=== PATIENT | male | born 1960 | race Caucasian/White ===

== ENCOUNTER 2017-06-27 17:51 | Emergency (ER) | payer SELFPAY ==
[~2017-06-27] VITALS: Ht 177.8 cm; Wt 75.0 kg
[2017-06-27 18:56] LABS: GLUCOSE,POINT OF CARE 85 MG/DL (70-110)
[2017-06-27 19:44] LABS: BASOPHILS % (AUTO) 1.3 % (0.0-2.0); EOSINOPHILS % (AUTO) 3.4 % (1.0-6.0); HEMATOCRIT 46.7 % (41-53); HEMOGLOBIN 15.4 g/dL (13.5-17.5); LYMPHOCYTES # (AUTO) 4.8 K/uL (1.0-4.8); LYMPHOCYTES % (AUTO) 58.6 % (22.0-44.0); MEAN CORPUSCULAR HEMOGLOBIN 31.9 pg (26.0-34.0); MEAN CORPUSCULAR HGB CONC 33.1 G/dL (31.0-37.0); MEAN CORPUSCULAR VOLUME 96 fL (80-100); MONOCYTES # (AUTO) 0.5 K/uL (0.1-1.0); MONOCYTES % (AUTO) 6.2 % (2.0-9.0); NEUTROPHILS # (AUTO) 2.5 K/uL (1.8-7.7); NEUTROPHILS % (AUTO) 30.5 % (40.0-70.0); PLATELET COUNT (AUTO) 109 K/uL (150-450); RED BLOOD CELL COUNT(AUTO) 4.84 MIL/uL (4.50-5.90); RED CELL DISTRIBUTION WIDTH 14.6 % (11.5-14.5); WHITE BLOOD COUNT (AUTO) 8.1 K/uL (4.5-11.0)
[2017-06-27 19:54] LABS: ANION GAP 7 mmol/L (8-16); CARBON DIOXIDE 30 mmol/L (22-29); CHLORIDE 105 mmol/L (98-107); CREATININE 1.02 mg/dL (0.60-1.30); GLOMERULAR FILTR. RATE CALC > 60 mL/min (>60); POTASSIUM 4.5 mmol/L (3.5-5.1); SODIUM SERUM 142 mmol/L (136-145); UREA NITROGEN, BLOOD 12 mg/dL (7-18)
[2017-06-27 20:00] LABS: ALANINE AMINOTRANSFERASE 108 U/L (12-78); ALBUMIN 3.7 g/dL (3.4-5.0); ASPARTATE AMINOTRANSFERASE 100 U/L (15-37); BILIRUBIN,TOTAL 0.4 mg/dL (0.1-1.0); TOTAL PROTEIN, SERUM 7.6 g/dL (6.4-8.2)
[2017-06-27 20:35] LABS: RBC MORPHOLOGY COMMENT NORMAL RBC MORPH
[2017-06-28 03:01] VITALS: BP 126/67
== END 2017-06-28 03:01 | disposition home or self-care (01) ==
LOC: EMS 17:53
DX: F10.129 Alcohol abuse with intoxication, unspecified (principal); R94.5 Abnormal results of liver function studies; D69.6 Thrombocytopenia, unspecified; Y90.8 Blood alcohol level of 240 mg/100 ml or more
CPT/HCPCS: 36415; 70450; 72125; 80053; 80307; 82962; 85025; 99285; G0480

== ENCOUNTER 2020-09-20 20:01 | Inpatient (IN) | payer OTHER, SELFPAY ==
[~2020-09-20] VITALS: Ht 172.7 cm; Wt 69.3 kg
[2020-09-20] MEDS ORDERED: 0.9% SODIUM CHLORIDE 10 ML SYRINGE IVP PRN (21:45)
[2020-09-20] MEDS ORDERED: ACETAMINOPHEN 325 MG TABLET PO PRN ×2 (21:45→22:00)
[2020-09-20] MEDS ORDERED: ONDANSETRON HCL 4 MG/2 ML VIAL IVP PRN ×2 (21:45→22:00)
[2020-09-20] MEDS ORDERED: ZOLPIDEM TARTRATE 5 MG TABLET PO PRN (22:00)
[2020-09-20] MEDS ORDERED: MORPHINE SULFATE 2 MG/ML SYRINGE IVP PRN (22:00)
[2020-09-20] MEDS ORDERED: HYDROCODONE/ACETAMINOPHEN 5-325 MG TABLET PO PRN (22:00)
[2020-09-20] MEDS ORDERED: BISACODYL 10 MG RECTAL RECTAL SUPPOSITORY PR PRN (22:00)
[2020-09-20] MEDS ORDERED: MAGNESIUM HYDROXIDE SUSPENSION 30 ML UDCUP PO PRN (22:00)
[2020-09-20 22:01] LABS: BASOPHILS % (AUTO) 1.3 % (0.0-2.0); EOSINOPHILS % (AUTO) 1.7 % (1.0-6.0); HEMATOCRIT 44.4 % (41-53); HEMOGLOBIN 14.6 g/dL (13.5-17.5); LYMPHOCYTES # (AUTO) 2.2 K/uL (1.0-4.8); MEAN CORPUSCULAR HEMOGLOBIN 29.1 pg (26.0-34.0); MEAN CORPUSCULAR HGB CONC 32.9 G/dL (31.0-37.0); MEAN CORPUSCULAR VOLUME 88 fL (80-100); MONOCYTES # (AUTO) 0.6 K/uL (0.1-1.0); MONOCYTES % (AUTO) 6.7 % (2.0-9.0); NEUTROPHILS # (AUTO) 5.4 K/uL (1.8-7.7); NEUTROPHILS % (AUTO) 64.3 % (40.0-70.0); RED BLOOD CELL COUNT(AUTO) 5.03 MIL/uL (4.50-5.90)
[2020-09-20 22:09] LABS: CALCIUM, TOTAL 9.5 mg/dL (8.8-10.5); CREATININE 1.28 mg/dL (0.60-1.30); POTASSIUM 3.7 mmol/L (3.5-5.1)
[2020-09-20 22:14] LABS: ALBUMIN 3.5 g/dL (3.4-5.0); BILIRUBIN,TOTAL 0.4 mg/dL (0.1-1.0); TOTAL PROTEIN, SERUM 7.6 g/dL (6.4-8.2)
[2020-09-20 22:32] LABS: PLATELET COUNT (AUTO) 73 K/uL (150-450)
[2020-09-20 23:08] VITALS: BP 147/91
[2020-09-20] MEDS: HEPARIN SODIUM,PORCINE 5,000 UNITS/ML VIAL SQ SCH (23:24)
[2020-09-21 04:57] VITALS: BP 156/83
[2020-09-21] MEDS ORDERED: INFLUENZA VIRUS VACCINE QVS 2020-21 (6MO+)/PF 60 MCG/0.5 ML SYRINGE IM ONE (07:00)
[2020-09-21] MEDS ORDERED: GABA-1181 PO (07:05)
[2020-09-21] MEDS ORDERED: IBUP-1506 PO (07:05)
[2020-09-21] MEDS ORDERED: ACET-66 PO (07:05)
[2020-09-21] MEDS ORDERED: TAMS-13 PO (07:05)
[2020-09-21] MEDS ORDERED: CHOL125C2 PO (07:05)
[2020-09-21 07:21] LABS: EOSINOPHILS % (AUTO) 2.1 % (1.0-6.0); HEMATOCRIT 43.1 % (41-53); HEMOGLOBIN 14.7 g/dL (13.5-17.5); LYMPHOCYTES # (AUTO) 1.7 K/uL (1.0-4.8); LYMPHOCYTES % (AUTO) 21.2 % (22.0-44.0); MEAN CORPUSCULAR HEMOGLOBIN 29.9 pg (26.0-34.0); MEAN CORPUSCULAR HGB CONC 34.2 G/dL (31.0-37.0); MEAN CORPUSCULAR VOLUME 87 fL (80-100); MONOCYTES # (AUTO) 0.6 K/uL (0.1-1.0); MONOCYTES % (AUTO) 7.7 % (2.0-9.0); NEUTROPHILS # (AUTO) 5.5 K/uL (1.8-7.7); PLATELET COUNT (AUTO) 72 K/uL (150-450); RED BLOOD CELL COUNT(AUTO) 4.93 MIL/uL (4.50-5.90); RED CELL DISTRIBUTION WIDTH 14.9 % (11.5-14.5)
[2020-09-21 07:36] LABS: ALANINE AMINOTRANSFERASE 37 U/L (12-78); ALBUMIN 3.1 g/dL (3.4-5.0); ALKALINE PHOSPHATASE 98 U/L (46-116); ANION GAP 6 mmol/L (8-16); ASPARTATE AMINOTRANSFERASE 37 U/L (15-37); BILIRUBIN,TOTAL 0.6 mg/dL (0.1-1.0); CALCIUM, TOTAL 9.1 mg/dL (8.8-10.5); CARBON DIOXIDE 27 mmol/L (22-29); CHLORIDE 107 mmol/L (98-107); CREATININE 1.08 mg/dL (0.60-1.30); GLOMERULAR FILTR. RATE CALC > 60 mL/min (>60); GLUCOSE,RANDOM 98 mg/dL (70-110); POTASSIUM 3.7 mmol/L (3.5-5.1); SODIUM SERUM 140 mmol/L (136-145); TOTAL PROTEIN, SERUM 6.9 g/dL (6.4-8.2); UREA NITROGEN, BLOOD 19 mg/dL (7-18)
[2020-09-21 08:22] VITALS: BP 138/87
[2020-09-21] MEDS: DOCUSATE SODIUM 100 MG CAPSULE PO SCH ×3 (09:00→20:27)
[2020-09-21] MEDS: PANTOPRAZOLE SODIUM 40 MG DR TABLET PO SCH ×2 (09:00→09:11)
[2020-09-21] MEDS: HEPARIN SODIUM,PORCINE 5,000 UNITS/ML VIAL SQ SCH ×2 (09:11→16:02)
[2020-09-21 12:52] LABS: COVID AG,FIA SOURCE NASOPHARYNGEAL
[2020-09-21] MEDS ORDERED: LIDOCAINE/PF 1% 5 ML VIAL ONE (13:22)
[2020-09-21] MEDS ORDERED: LIDOCAINE 2% 5 ML JELLY ONE (13:22)
[2020-09-21] MEDS ORDERED: IOHEXOL 300 MG/ML 10 ML VIAL ONE (13:23)
[2020-09-21] MEDS ORDERED: FentaNYL CITRATE-PF 100 MCG/2 ML VIAL ONE ×2 (14:11→14:23)
[2020-09-21] MEDS ORDERED: MIDAZOLAM HCL 2 MG/2 ML VIAL ONE ×2 (14:11→14:23)
[2020-09-21] MEDS ORDERED: FentaNYL CITRATE-PF 100 MCG/2 ML VIAL IVP ONE (14:15)
[2020-09-21] MEDS ORDERED: MIDAZOLAM HCL 2 MG/2 ML VIAL IVP ONE (14:15)
[2020-09-21 16:42] VITALS: BP 134/80
== END 2020-09-21 22:25 | disposition hospice, home (50) | DRG 466 ==
LOC: EMS 20:02 → 6N 22:00
PROVIDERS: ADMIT Internal Medicine; ATTEND Internal Medicine
DX: T83.020A Displacement of cystostomy catheter, initial encounter (principal); F10.129 Alcohol abuse with intoxication, unspecified; E86.0 Dehydration; R74.01 Elevation of levels of liver transaminase levels; Y90.9 Presence of alcohol in blood, level not specified; Y83.8 Other surgical procedures as the cause of abnormal reaction of the patient, or of later complication, without mention of misadventure at the time of the procedure; Y92.89 Other specified places as the place of occurrence of the external cause; Z20.828 Contact with and (suspected) exposure to other viral communicable diseases
CPT/HCPCS: 76000; 87426; 99244; J1644; J2001; J2250; J3010; Q9967

== ENCOUNTER 2022-11-05 11:14 | Emergency (ER) | payer OTHER ==
[~2022-11-05] VITALS: Ht 175.3 cm; Wt 63.6 kg
[~2022-11-05 11:14] MED LIST: ACET-3385 PO; CHOL500013 PO; GABA-1181 PO; IBUP-1506 PO; TAMS-13 PO
[2022-11-05] MEDS ORDERED: VANCOMYCIN 1GM/WATER(PEG/NADA) 200 ML IV ONE (12:00)
[2022-11-05] MEDS ORDERED: DEXTROSE 50%-WATER 25 GM/50 ML SYRINGE IVP ONE (12:30)
[2022-11-05 12:52] LABS: BASOPHILS % (AUTO) 0.1 % (0.0-2.0); EOSINOPHILS % (AUTO) 0 % (1.0-6.0); HEMATOCRIT 41.8 % (41-53); HEMOGLOBIN 13.5 g/dL (13.5-17.5); LYMPHOCYTES # (AUTO) 0.3 K/uL (1.0-4.8); LYMPHOCYTES % (AUTO) 1.1 % (22.0-44.0); MEAN CORPUSCULAR HEMOGLOBIN 28.9 pg (26.0-34.0); MEAN CORPUSCULAR HGB CONC 32.2 G/dL (31.0-37.0); MEAN CORPUSCULAR VOLUME 90 fL (80-100); MONOCYTES # (AUTO) 0.2 K/uL (0.1-1.0); MONOCYTES % (AUTO) 0.9 % (2.0-9.0); NEUTROPHILS # (AUTO) 21.4 K/uL (1.8-7.7); RED BLOOD CELL COUNT(AUTO) 4.67 MIL/uL (4.50-5.90); RED CELL DISTRIBUTION WIDTH 14.6 % (11.5-14.5)
[2022-11-05 12:58] LABS: CALCIUM, TOTAL 8.7 mg/dL (8.8-10.5); CREATININE 2.59 mg/dL (0.60-1.30); POTASSIUM 4.7 mmol/L (3.5-5.1)
[2022-11-05 13:00] LABS: NEUTROPHILS % (AUTO) 97.9 % (40.0-70.0)
[2022-11-05 13:15] LABS: PLATELET COUNT (AUTO) 70 K/uL (150-450)
[2022-11-05] MEDS ORDERED: ACETAMINOPHEN 325 MG TABLET PO ONE (13:15)
[2022-11-05] MEDS ORDERED: IBUPROFEN 600 MG TABLET PO ONE (13:15)
[2022-11-05 13:30] LABS: C-REACTIVE PROTEIN QUANT 31.94 mg/dL (0.00-0.30)
[2022-11-05] MEDS ORDERED: CLINDAMYCIN 600 MG/D5% WATER 50 ML IV ONE (13:30)
[2022-11-05] MEDS ORDERED: PIPERACILLIN/TAZO 3.375 GM/D5W 50 ML IV ONE (13:30)
[2022-11-05 13:53] LABS: COVID AG,FIA SOURCE NASAL SWAB
[2022-11-05 13:58] LABS: INR 1.1 (0.9-1.1); PROTHROMBIN TIME 11.3 SEC (9.4-11.6)
[2022-11-05] MEDS ORDERED: SODIUM CHLORIDE 0.9% 500 ML IV ONE ×2 (14:00→15:15)
[2022-11-05 14:14] LABS: LACTIC ACID 2.5 mmol/L (0.4-2.0)
[2022-11-05] MEDS ORDERED: SODIUM CHLORIDE 0.9% 100 ML ONE (14:19)
[2022-11-05] MEDS ORDERED: IOHEXOL 350 MG/ML 100 ML VIAL ONE (14:19)
[2022-11-05 15:06] LABS: GLUCOSE,POINT OF CARE 126 MG/DL (70-110)
[2022-11-05] MEDS ORDERED: AMOX1TAB15 PO (18:11)
[2022-11-05] MEDS ORDERED: BACTDSB PO (18:12)
[2022-11-05] MEDS ORDERED: CLIN300C58 PO (18:12)
[2022-11-05 18:16] VITALS: BP 84/47
== END 2022-11-05 19:17 | disposition left against medical advice (07) ==
LOC: EMS 11:17
DX: A41.9 Sepsis, unspecified organism (principal); E87.1 Hypo-osmolality and hyponatremia; Z20.822 Contact with and (suspected) exposure to COVID-19
CPT/HCPCS: 99285; 93970; 96365; 73701; 96366; 87426; 80048; 82550; 82962; 83605; 84484; 85025; 85610; 85651; 85730; 86140; 87040; 87205; 86850; 86900; 86901; 87077; 93005; 96368; 36415; J3490; J2543; Q9967; J7050; J7040

== ENCOUNTER 2022-11-07 08:55 | Inpatient (IN) | payer OTHER ==
[~2022-11-07] VITALS: Ht 175.3 cm; Wt 64.8 kg
[~2022-11-07 08:55] MED LIST changes: +AMOX1TAB15 PO; +BACTDSB PO; +CLIN300C58 PO
[2022-11-07] MEDS ORDERED: MORPHINE SULFATE 2 MG/ML SYRINGE IVP ONE (09:15)
[2022-11-07] MEDS ORDERED: PIPERACILLIN SODIUM/TAZOBACTAM 4.5 GM in DEXTROSE 5%-WATER 100 ML IV ONE (09:15)
[2022-11-07] MEDS ORDERED: 0.9% SODIUM CHLORIDE 10 ML SYRINGE IVP PRN ×2 (09:15→11:30)
[2022-11-07] MEDS ORDERED: VANCOMYCIN HCL 1.25 GM in DEXTROSE 5%-WATER 250 ML IV ONE (09:15)
[2022-11-07] MEDS ORDERED: ACETAMINOPHEN 500 MG TABLET PO ONE (09:15)
[2022-11-07] MEDS ORDERED: SODIUM CHLORIDE 0.9% 1,000 ML IV ONE ×2 (09:15→14:15)
[2022-11-07 09:40] LABS: BASOPHILS % (AUTO) 0.2 % (0.0-2.0); EOSINOPHILS % (AUTO) 0.4 % (1.0-6.0); HEMATOCRIT 45.1 % (41-53); HEMOGLOBIN 14.7 g/dL (13.5-17.5); LYMPHOCYTES # (AUTO) 0.5 K/uL (1.0-4.8); LYMPHOCYTES % (AUTO) 2.5 % (22.0-44.0); MEAN CORPUSCULAR HGB CONC 32.6 G/dL (31.0-37.0); MEAN CORPUSCULAR VOLUME 89 fL (80-100); MONOCYTES # (AUTO) 0.6 K/uL (0.1-1.0); MONOCYTES % (AUTO) 2.8 % (2.0-9.0); NEUTROPHILS # (AUTO) 20.1 K/uL (1.8-7.7); RED BLOOD CELL COUNT(AUTO) 5.06 MIL/uL (4.50-5.90); RED CELL DISTRIBUTION WIDTH 14.5 % (11.5-14.5)
[2022-11-07 09:42] LABS: NEUTROPHILS % (AUTO) 94.1 % (40.0-70.0)
[2022-11-07 09:43] LABS: CALCIUM, TOTAL 10.2 mg/dL (8.8-10.5); CREATININE 1.87 mg/dL (0.60-1.30); POTASSIUM 3.7 mmol/L (3.5-5.1)
[2022-11-07 09:44] LABS: INR 1.1 (0.9-1.1); PROTHROMBIN TIME 11.3 SEC (9.4-11.6)
[2022-11-07 09:52] LABS: LACTIC ACID 1.6 mmol/L (0.4-2.0)
[2022-11-07 09:57] LABS: PLATELET COUNT (AUTO) 87 K/uL (150-450); PLATELET MORPHOLOGY COMMENT LARGE PLTS PRESENT
[2022-11-07 10:19] LABS: ALBUMIN 2.8 g/dL (3.4-5.0); BILIRUBIN,TOTAL 1.6 mg/dL (0.1-1.0); MAGNESIUM 2.2 mg/dL (1.80-2.40); PHOSPHORUS 2.9 mg/dL (2.5-4.9)
[2022-11-07 11:30] LABS: COVID AG,FIA SOURCE NASAL SWAB
[2022-11-07] MEDS ORDERED: ONDANSETRON HCL 4 MG/2 ML VIAL IVP PRN ×3 (11:30→14:15)
[2022-11-07] MEDS ORDERED: ACETAMINOPHEN 325 MG TABLET PO PRN ×2 (11:30→14:15)
[2022-11-07] MEDS ORDERED: SODIUM CHLORIDE 0.9% 500 ML IV ONE (11:47)
[2022-11-07] MEDS ORDERED: HYDROCODONE/ACETAMINOPHEN 5-325 MG TABLET PO PRN (12:00)
[2022-11-07] MEDS ORDERED: MAGNESIUM HYDROXIDE SUSPENSION 30 ML UDCUP PO PRN (14:15)
[2022-11-07] MEDS ORDERED: BISACODYL 10 MG RECTAL RECTAL SUPPOSITORY PR PRN (14:15)
[2022-11-07 14:41] LABS: GLUCOMETER DEV NAME(LOC) SDS.; GLUCOSE,POINT OF CARE 94 MG/DL (70-110)
[2022-11-07] MEDS ORDERED: HYDROmorphone HCL 2 MG/ML SYRINGE IVP PRN (15:30)
[2022-11-07 16:00] VITALS: BP 105/47
[2022-11-07] MEDS: HEPARIN SODIUM,PORCINE 5,000 UNITS/ML VIAL SQ SCH ×2 (16:00→23:39)
[2022-11-07] MEDS: PIPERACILLIN SODIUM/TAZOBACTAM 2.25 GM in DEXTROSE 5%-WATER 50 ML IV SCH ×2 (16:13→20:55)
[2022-11-07 20:00] VITALS: BP 110/53
[2022-11-07] MEDS ORDERED: SODIUM CHLORIDE 0.9% 250 ML IV ONE (20:43)
[2022-11-07] MEDS: MORPHINE SULFATE 2 MG/ML SYRINGE IVP PRN (20:55)
[2022-11-07] MEDS: DOCUSATE SODIUM 100 MG CAPSULE PO SCH (20:55)
[2022-11-07 21:26] LABS: HEMATOCRIT 34.7 % (41-53); HEMOGLOBIN 11.2 g/dL (13.5-17.5)
[2022-11-07] MEDS: HYDROCODONE/ACETAMINOPHEN 5-325 MG TABLET PO PRN (23:39)
[2022-11-08] VITALS: BP 88/56
[2022-11-08] MEDS: MORPHINE SULFATE 2 MG/ML SYRINGE IVP PRN ×2 (00:56→06:02)
[2022-11-08 04:00] VITALS: BP 90/54
[2022-11-08] MEDS ORDERED: ONDANSETRON HCL 4 MG/2 ML VIAL IVP ONE (04:18)
[2022-11-08] MEDS ORDERED: PROPOFOL 1% 20 ML VIAL IVP ONE (04:18)
[2022-11-08] MEDS ORDERED: MIDAZOLAM HCL 2 MG/2 ML VIAL IVP ONE (04:18)
[2022-11-08] MEDS ORDERED: ROCURONIUM BROMIDE 10 MG/ML 5 ML VIAL IVP ONE (04:18)
[2022-11-08] MEDS ORDERED: FentaNYL CITRATE PF 100 MCG/2 ML VIAL IVP ONE (04:18)
[2022-11-08] MEDS ORDERED: DEXAMETHASONE SOD PHOS 4 MG/ML VIAL IVP ONE (04:18)
[2022-11-08] MEDS ORDERED: 0.9% SODIUM CHLORIDE 10 ML VIAL IVP ONE (04:18)
[2022-11-08] MEDS ORDERED: KETOROLAC TROMETHAMINE 60 MG/2 ML VIAL IM ONE (04:18)
[2022-11-08] MEDS ORDERED: LIDOCAINE 2% 5 ML JELLY TP ONE (04:18)
[2022-11-08] MEDS: PIPERACILLIN SODIUM/TAZOBACTAM 2.25 GM in DEXTROSE 5%-WATER 50 ML IV SCH (04:51)
[2022-11-08 05:46] LABS: EOSINOPHILS % (AUTO) 0 % (1.0-6.0); HEMATOCRIT 32.9 % (41-53); LYMPHOCYTES # (AUTO) 0.6 K/uL (1.0-4.8); LYMPHOCYTES % (AUTO) 3.9 % (22.0-44.0); MEAN CORPUSCULAR HEMOGLOBIN 29.4 pg (26.0-34.0); MEAN CORPUSCULAR HGB CONC 33.5 G/dL (31.0-37.0); MEAN CORPUSCULAR VOLUME 88 fL (80-100); MONOCYTES # (AUTO) 0.5 K/uL (0.1-1.0); MONOCYTES % (AUTO) 3.6 % (2.0-9.0); PLATELET COUNT (AUTO) 66 K/uL (150-450); RED BLOOD CELL COUNT(AUTO) 3.76 MIL/uL (4.50-5.90); RED CELL DISTRIBUTION WIDTH 14.2 % (11.5-14.5)
[2022-11-08 06:06] LABS: ALBUMIN 1.9 g/dL (3.4-5.0); BILIRUBIN,TOTAL 0.9 mg/dL (0.1-1.0); CALCIUM, TOTAL 8.6 mg/dL (8.8-10.5); CREATININE 1.46 mg/dL (0.60-1.30); POTASSIUM 4.1 mmol/L (3.5-5.1); TOTAL PROTEIN, SERUM 6.4 g/dL (6.4-8.2)
[2022-11-08 06:23] LABS: NEUTROPHILS % (AUTO) 92.5 % (40.0-70.0); PLATELET MORPHOLOGY COMMENT LARGE PLTS PRESENT
[2022-11-08 08:00] VITALS: BP 103/54
[2022-11-08] MEDS: VANCOMYCIN 1GM/WATER(PEG/NADA) 200 ML IV SCH (09:00)
[2022-11-08] MEDS: DOCUSATE SODIUM 100 MG CAPSULE PO SCH ×2 (09:00→20:51)
[2022-11-08] MEDS: PANTOPRAZOLE SODIUM 40 MG DR TABLET PO SCH (09:01)
[2022-11-08] MEDS: HEPARIN SODIUM,PORCINE 5,000 UNITS/ML VIAL SQ SCH ×3 (09:01→22:13)
[2022-11-08] MEDS: HYDROCODONE/ACETAMINOPHEN 5-325 MG TABLET PO PRN (09:03)
[2022-11-08] MEDS: LORazepam 2 MG/ML VIAL IVP PRN (09:56)
[2022-11-08] MEDS ORDERED: PIPERACILLIN/TAZO 3.375 GM/D5W 50 ML IV SCH (10:00)
[2022-11-08 12:00] VITALS: BP 98/57
[2022-11-08 12:38] LABS: APPEARANCE,URINE HAZY (CLEAR); BILIRUBIN,URINE NEGATIVE (NEGATIVE); GLUCOSE, URINE (UA) NEGATIVE (NEGATIVE); KETONES,URINE TRACE mg/dL (NEGATIVE); LEUKOCYTE ESTERASE ,URINE MODERATE (NEGATIVE); NITRATE,URINE NEGATIVE (NEGATIVE); OCCULT BLOOD,URINE SMALL (NEGATIVE); PROTEIN,URINE 30-70 mg/dL (NEGATIVE); SPECIFIC GRAVITIY, URINE 1.024 (1.003-1.030); UROBILINOGEN,URINE <=1.0 mg/dL (<=1.0)
[2022-11-08 12:45] LABS: AMPHET/METH SCREEN,URINE NEGATIVE (NEGATIVE); BARBITURATE SCREEN, URINE NEGATIVE (NEGATIVE); BENZODIAZEPINES SCREEN,URINE POSITIVE (NEGATIVE); CANNABINOID SCREEN,URINE POSITIVE (NEGATIVE); COCAINE SCREEN,URINE NEGATIVE (NEGATIVE); METHADONE SCREEN, URINE NEGATIVE (NEGATIVE); OPIATE SCREEN,URINE POSITIVE (NEGATIVE)
[2022-11-08 12:47] LABS: PHENCYCLIDINE SCREEN,URINE NEGATIVE (NEGATIVE)
[2022-11-08 12:51] LABS: BACTERIA,URINE None Seen /HPF (None Seen); URIC ACID CRYSTALS,URINE Moderate /LPF (None Seen)
[2022-11-08] MEDS: CLINDAMYCIN 900 MG/D5% WATER 50 ML IV SCH ×2 (14:24→21:54)
[2022-11-08] MEDS ORDERED: PENICILLIN G POTASSIUM 3 MILUNITS in DEXTROSE 5%-WATER 50 ML IV SCH (15:00)
[2022-11-08] MEDS ORDERED: SODIUM CHLORIDE 0.9% 1,000 ML IV ONE (15:30)
[2022-11-08 16:00] VITALS: BP 115/63
[2022-11-08] MEDS: PIPERACILLIN/TAZO 3.375 GM/D5W 50 ML IV SCH (20:50)
[2022-11-08 21:36] VITALS: BP 115/62
[2022-11-09 00:32] VITALS: BP 115/64
[2022-11-09] MEDS: MORPHINE SULFATE 2 MG/ML SYRINGE IVP PRN ×2 (02:27→05:31)
[2022-11-09] MEDS: PIPERACILLIN/TAZO 3.375 GM/D5W 50 ML IV SCH ×4 (02:28→20:35)
[2022-11-09] MEDS: LORazepam 2 MG/ML VIAL IVP PRN ×4 (03:31→23:51)
[2022-11-09] MEDS: CLINDAMYCIN 900 MG/D5% WATER 50 ML IV SCH ×3 (05:31→22:00)
[2022-11-09 06:54] LABS: BASOPHILS % (AUTO) 0.2 % (0.0-2.0); EOSINOPHILS % (AUTO) 0.1 % (1.0-6.0); HEMATOCRIT 32.3 % (41-53); HEMOGLOBIN 10.7 g/dL (13.5-17.5); LYMPHOCYTES # (AUTO) 0.8 K/uL (1.0-4.8); LYMPHOCYTES % (AUTO) 4.3 % (22.0-44.0); MEAN CORPUSCULAR HEMOGLOBIN 29.4 pg (26.0-34.0); MEAN CORPUSCULAR HGB CONC 33.2 G/dL (31.0-37.0); MEAN CORPUSCULAR VOLUME 88 fL (80-100); MONOCYTES # (AUTO) 0.7 K/uL (0.1-1.0); MONOCYTES % (AUTO) 4.1 % (2.0-9.0); NEUTROPHILS # (AUTO) 16.6 K/uL (1.8-7.7); PLATELET COUNT (AUTO) 89 K/uL (150-450); RED BLOOD CELL COUNT(AUTO) 3.65 MIL/uL (4.50-5.90); RED CELL DISTRIBUTION WIDTH 14.6 % (11.5-14.5)
[2022-11-09 06:59] LABS: NEUTROPHILS % (AUTO) 91.3 % (40.0-70.0)
[2022-11-09 07:03] LABS: HEMOGLOBIN A1C 5.4 % (3.8-5.6)
[2022-11-09 07:09] LABS: CALCIUM, TOTAL 9.1 mg/dL (8.8-10.5); CREATININE 1.42 mg/dL (0.60-1.30); POTASSIUM 3.9 mmol/L (3.5-5.1)
[2022-11-09] MEDS: HYDROCODONE/ACETAMINOPHEN 5-325 MG TABLET PO PRN ×3 (08:05→23:50)
[2022-11-09] MEDS: MULTIVITAMINS WITH MINERALS, THERAPEUTIC TABLET PO SCH (08:05)
[2022-11-09] MEDS: PANTOPRAZOLE SODIUM 40 MG DR TABLET PO SCH (08:05)
[2022-11-09] MEDS: DOCUSATE SODIUM 100 MG CAPSULE PO SCH ×2 (08:05→20:36)
[2022-11-09 08:18] VITALS: BP 156/61
[2022-11-09] MEDS: VANCOMYCIN 1GM/WATER(PEG/NADA) 200 ML IV SCH (08:34)
[2022-11-09 15:26] LABS: C-REACTIVE PROTEIN QUANT 9.46 mg/dL (0.00-0.30)
[2022-11-09 19:55] VITALS: BP 132/75
[2022-11-09] MEDS ORDERED: SODIUM CHLORIDE 0.9% 500 ML IV ONE (20:20)
[2022-11-09] MEDS: ZOLPIDEM TARTRATE 5 MG TABLET PO PRN (20:35)
[2022-11-10] MEDS: PIPERACILLIN/TAZO 3.375 GM/D5W 50 ML IV SCH ×2 (01:38→09:44)
[2022-11-10 01:54] VITALS: BP 152/77
[2022-11-10] MEDS: MORPHINE SULFATE 2 MG/ML SYRINGE IVP PRN ×2 (01:54→17:27)
[2022-11-10] MEDS: CLINDAMYCIN 900 MG/D5% WATER 50 ML IV SCH ×3 (05:01→21:33)
[2022-11-10 05:39] VITALS: BP 147/81
[2022-11-10 06:43] LABS: BASOPHILS % (AUTO) 0.5 % (0.0-2.0); EOSINOPHILS % (AUTO) 0.5 % (1.0-6.0); HEMATOCRIT 31.4 % (41-53); HEMOGLOBIN 10.5 g/dL (13.5-17.5); LYMPHOCYTES # (AUTO) 1.3 K/uL (1.0-4.8); LYMPHOCYTES % (AUTO) 11.9 % (22.0-44.0); MEAN CORPUSCULAR HEMOGLOBIN 29.5 pg (26.0-34.0); MEAN CORPUSCULAR HGB CONC 33.5 G/dL (31.0-37.0); MEAN CORPUSCULAR VOLUME 88 fL (80-100); MONOCYTES # (AUTO) 0.7 K/uL (0.1-1.0); MONOCYTES % (AUTO) 6.1 % (2.0-9.0); NEUTROPHILS # (AUTO) 8.8 K/uL (1.8-7.7); PLATELET COUNT (AUTO) 77 K/uL (150-450); RED BLOOD CELL COUNT(AUTO) 3.57 MIL/uL (4.50-5.90); RED CELL DISTRIBUTION WIDTH 14.3 % (11.5-14.5)
[2022-11-10] MEDS: MULTIVITAMINS WITH MINERALS, THERAPEUTIC TABLET PO SCH (07:58)
[2022-11-10] MEDS: DOCUSATE SODIUM 100 MG CAPSULE PO SCH ×2 (07:58→21:34)
[2022-11-10] MEDS: VANCOMYCIN 1GM/WATER(PEG/NADA) 200 ML IV SCH (07:58)
[2022-11-10] MEDS: PANTOPRAZOLE SODIUM 40 MG DR TABLET PO SCH (07:59)
[2022-11-10] MEDS: LORazepam 2 MG/ML VIAL IVP PRN ×2 (07:59→20:10)
[2022-11-10 08:00] VITALS: BP 144/85
[2022-11-10 08:45] LABS: C-REACTIVE PROTEIN QUANT 4.92 mg/dL (0.00-0.30); CALCIUM, TOTAL 8.6 mg/dL (8.8-10.5); CREATININE 1.45 mg/dL (0.60-1.30); POTASSIUM 3.5 mmol/L (3.5-5.1); TOTAL PROTEIN, SERUM 6.5 g/dL (6.4-8.2); VANCOMYCIN,RANDOM 21.9 mcg/mL (25.0-50.0)
[2022-11-10 15:17] VITALS: BP 140/77
[2022-11-10] MEDS: CefTRIAXone SODIUM 2 GM in DEXTROSE 5%-WATER 50 ML IV SCH (16:49)
[2022-11-10 19:36] VITALS: BP 149/80
[2022-11-10] MEDS: TraZODone HCL 50 MG TABLET PO SCH (21:34)
[2022-11-10] MEDS: HYDROCODONE/ACETAMINOPHEN 5-325 MG TABLET PO PRN (21:35)
[2022-11-11] MEDS: MORPHINE SULFATE 2 MG/ML SYRINGE IVP PRN ×2 (00:09→17:25)
[2022-11-11 00:17] VITALS: BP 132/75
[2022-11-11 03:40] VITALS: BP 137/81
[2022-11-11] MEDS: LORazepam 2 MG/ML VIAL IVP PRN ×3 (03:46→19:46)
[2022-11-11] MEDS: CefTRIAXone SODIUM 2 GM in DEXTROSE 5%-WATER 50 ML IV SCH ×2 (03:46→16:37)
[2022-11-11] MEDS: CLINDAMYCIN 900 MG/D5% WATER 50 ML IV SCH (05:21)
[2022-11-11 06:37] LABS: ANION GAP 7 mmol/L (8-16); CALCIUM, TOTAL 8.4 mg/dL (8.8-10.5); CARBON DIOXIDE 27 mmol/L (22-29); CHLORIDE 109 mmol/L (98-107); GLUCOSE,RANDOM 112 mg/dL (70-110); POTASSIUM 3.5 mmol/L (3.5-5.1); SODIUM SERUM 143 mmol/L (136-145); UREA NITROGEN, BLOOD 19 mg/dL (7-18)
[2022-11-11 06:38] LABS: GLOMERULAR FILTR. RATE CALC > 60 mL/min (>60)
[2022-11-11 07:22] VITALS: BP 139/83
[2022-11-11] MEDS: DOCUSATE SODIUM 100 MG CAPSULE PO SCH ×2 (08:15→21:00)
[2022-11-11] MEDS: TraZODone HCL 50 MG TABLET PO SCH ×2 (08:16→19:46)
[2022-11-11] MEDS: PANTOPRAZOLE SODIUM 40 MG DR TABLET PO SCH (08:17)
[2022-11-11] MEDS: MULTIVITAMINS WITH MINERALS, THERAPEUTIC TABLET PO SCH (08:17)
[2022-11-11 19:51] VITALS: BP 138/75
[2022-11-11] MEDS: ZOLPIDEM TARTRATE 5 MG TABLET PO PRN (23:51)
[2022-11-11] MEDS: HYDROCODONE/ACETAMINOPHEN 5-325 MG TABLET PO PRN (23:57)
[2022-11-12] MEDS: CefTRIAXone SODIUM 2 GM in DEXTROSE 5%-WATER 50 ML IV SCH ×2 (03:48→17:56)
[2022-11-12] MEDS: LORazepam 2 MG/ML VIAL IVP PRN ×2 (04:17→13:23)
[2022-11-12 07:25] VITALS: BP 134/76
[2022-11-12] MEDS: PANTOPRAZOLE SODIUM 40 MG DR TABLET PO SCH (08:28)
[2022-11-12] MEDS: MULTIVITAMINS WITH MINERALS, THERAPEUTIC TABLET PO SCH (08:28)
[2022-11-12] MEDS: TraZODone HCL 50 MG TABLET PO SCH ×2 (08:32→20:05)
[2022-11-12] MEDS: DOCUSATE SODIUM 100 MG CAPSULE PO SCH ×2 (08:33→20:07)
[2022-11-12] MEDS: MORPHINE SULFATE 2 MG/ML SYRINGE IVP PRN (09:27)
[2022-11-12] MEDS ORDERED: SODIUM CHLORIDE 0.9% IRRIG BTL 1,000 ML IRRIG ONE (09:47)
[2022-11-12 15:21] VITALS: BP 130/82
[2022-11-12] MEDS: HYDROCODONE/ACETAMINOPHEN 5-325 MG TABLET PO PRN (17:13)
[2022-11-12 19:30] VITALS: BP 127/80
[2022-11-12] MEDS ORDERED: GABAPENTIN 300 MG CAPSULE PO PRN (19:45)
[2022-11-12] MEDS ORDERED: HALOPERIDOL 5 MG TABLET PO PRN (19:45)
[2022-11-12] MEDS ORDERED: LORazepam 2 MG/ML VIAL IVP PRN (19:45)
[2022-11-12] MEDS: GABAPENTIN 300 MG CAPSULE PO SCH (20:05)
[2022-11-12] MEDS: DIVALPROEX SODIUM 250 MG ER TABLET PO SCH (20:14)
[2022-11-13] MEDS: CefTRIAXone SODIUM 2 GM in DEXTROSE 5%-WATER 50 ML IV SCH ×2 (03:28→16:16)
[2022-11-13] MEDS ORDERED: SODIUM CHLORIDE 0.9% 500 ML IV ONE (03:33)
[2022-11-13 04:58] VITALS: BP 142/71
[2022-11-13 06:28] LABS: BASOPHILS % (AUTO) 0.6 % (0.0-2.0); EOSINOPHILS % (AUTO) 1.4 % (1.0-6.0); HEMATOCRIT 30.6 % (41-53); HEMOGLOBIN 10.1 g/dL (13.5-17.5); LYMPHOCYTES # (AUTO) 1.2 K/uL (1.0-4.8); LYMPHOCYTES % (AUTO) 12.4 % (22.0-44.0); MEAN CORPUSCULAR HEMOGLOBIN 29.3 pg (26.0-34.0); MEAN CORPUSCULAR HGB CONC 33.2 G/dL (31.0-37.0); MEAN CORPUSCULAR VOLUME 88 fL (80-100); MONOCYTES # (AUTO) 0.6 K/uL (0.1-1.0); MONOCYTES % (AUTO) 6.4 % (2.0-9.0); NEUTROPHILS # (AUTO) 7.8 K/uL (1.8-7.7); NEUTROPHILS % (AUTO) 79.2 % (40.0-70.0); RED BLOOD CELL COUNT(AUTO) 3.46 MIL/uL (4.50-5.90); RED CELL DISTRIBUTION WIDTH 14.7 % (11.5-14.5)
[2022-11-13 07:00] LABS: ALANINE AMINOTRANSFERASE 39 U/L (12-78); ALKALINE PHOSPHATASE 93 U/L (46-116); ANION GAP 9 mmol/L (8-16); ASPARTATE AMINOTRANSFERASE 46 U/L (15-37); BILIRUBIN,TOTAL 0.4 mg/dL (0.1-1.0); C-REACTIVE PROTEIN QUANT 3.51 mg/dL (0.00-0.30); CALCIUM, TOTAL 8.4 mg/dL (8.8-10.5); CARBON DIOXIDE 25 mmol/L (22-29); CHLORIDE 105 mmol/L (98-107); CREATININE 1.09 mg/dL (0.60-1.30); GLUCOSE,RANDOM 95 mg/dL (70-110); POTASSIUM 3.6 mmol/L (3.5-5.1); SODIUM SERUM 139 mmol/L (136-145); TOTAL PROTEIN, SERUM 7.4 g/dL (6.4-8.2); UREA NITROGEN, BLOOD 16 mg/dL (7-18)
[2022-11-13 07:04] LABS: GLOMERULAR FILTR. RATE CALC > 60 mL/min (>60)
[2022-11-13 07:05] VITALS: BP 120/74
[2022-11-13 07:33] LABS: PLATELET COUNT (AUTO) 86 K/uL (150-450)
[2022-11-13] MEDS: DIVALPROEX SODIUM 250 MG ER TABLET PO SCH ×4 (08:23→21:25)
[2022-11-13] MEDS: GABAPENTIN 300 MG CAPSULE PO SCH ×4 (08:23→21:25)
[2022-11-13] MEDS: MULTIVITAMINS WITH MINERALS, THERAPEUTIC TABLET PO SCH (08:23)
[2022-11-13] MEDS: PANTOPRAZOLE SODIUM 40 MG DR TABLET PO SCH (08:23)
[2022-11-13] MEDS: DOCUSATE SODIUM 100 MG CAPSULE PO SCH ×2 (08:23→21:25)
[2022-11-13] MEDS: TraZODone HCL 50 MG TABLET PO SCH ×4 (08:24→21:26)
[2022-11-13] MEDS: MICONAZOLE NITRATE 2% 142 GM CREAM [BAZA] TP SCH (10:00)
[2022-11-13 15:18] VITALS: BP 113/66
[2022-11-13 19:12] VITALS: BP 131/68
[2022-11-14 04:25] VITALS: BP 105/54
[2022-11-14] MEDS: CefTRIAXone SODIUM 2 GM in DEXTROSE 5%-WATER 50 ML IV SCH ×2 (04:33→16:05)
[2022-11-14 08:01] VITALS: BP 98/61
[2022-11-14] MEDS: DOCUSATE SODIUM 100 MG CAPSULE PO SCH ×2 (08:34→20:41)
[2022-11-14] MEDS: DIVALPROEX SODIUM 250 MG ER TABLET PO SCH ×4 (08:34→20:40)
[2022-11-14] MEDS: GABAPENTIN 300 MG CAPSULE PO SCH ×4 (08:34→20:42)
[2022-11-14] MEDS: TraZODone HCL 50 MG TABLET PO SCH ×4 (08:34→20:41)
[2022-11-14] MEDS: MULTIVITAMINS WITH MINERALS, THERAPEUTIC TABLET PO SCH ×2 (08:34→10:38)
[2022-11-14] MEDS: PANTOPRAZOLE SODIUM 40 MG DR TABLET PO SCH (08:34)
[2022-11-14] MEDS: TAMSULOSIN HCL 0.4 MG CAPSULE PO SCH ×2 (10:38→20:42)
[2022-11-14] MEDS: MICONAZOLE NITRATE 2% 142 GM CREAM [BAZA] TP SCH (11:18)
[2022-11-14 15:45] VITALS: BP 118/76
[2022-11-14 19:35] VITALS: BP 120/77
[2022-11-14] MEDS ORDERED: TAMSULOSIN HCL 0.4 MG CAPSULE PO SCH ×2 (21:00)
[2022-11-15] MEDS: CefTRIAXone SODIUM 2 GM in DEXTROSE 5%-WATER 50 ML IV SCH ×2 (03:56→16:05)
[2022-11-15 04:00] VITALS: BP 137/76
[2022-11-15 07:45] VITALS: BP 130/78
[2022-11-15] MEDS: MULTIVITAMINS WITH MINERALS, THERAPEUTIC TABLET PO SCH (08:04)
[2022-11-15] MEDS: PANTOPRAZOLE SODIUM 40 MG DR TABLET PO SCH (08:04)
[2022-11-15] MEDS: TAMSULOSIN HCL 0.4 MG CAPSULE PO SCH (08:04)
[2022-11-15] MEDS: TraZODone HCL 50 MG TABLET PO SCH ×3 (08:05→16:04)
[2022-11-15] MEDS: DOCUSATE SODIUM 100 MG CAPSULE PO SCH (08:05)
[2022-11-15] MEDS: GABAPENTIN 300 MG CAPSULE PO SCH ×3 (08:05→16:05)
[2022-11-15] MEDS: DIVALPROEX SODIUM 250 MG ER TABLET PO SCH ×3 (08:05→16:04)
[2022-11-15] MEDS: MICONAZOLE NITRATE 2% 142 GM CREAM [BAZA] TP SCH (08:05)
[2022-11-15 15:14] LABS: COVID AG,FIA SOURCE NASAL SWAB
[2022-11-15 15:22] VITALS: BP 118/72
[2022-11-15] MEDS ORDERED: CEFX2I IV (17:04)
[2022-11-15] MEDS ORDERED: DOCU-385 PO (17:06)
[2022-11-15] MEDS ORDERED: DIVA-85 PO (17:06)
[2022-11-15] MEDS ORDERED: MICO45CR44 TP (17:07)
[2022-11-15] MEDS ORDERED: PANT-31 PO (17:08)
[2022-11-15] MEDS ORDERED: MULT-1239 PO (17:08)
[2022-11-15] MEDS ORDERED: TRAZ-252 PO (17:09)
[2022-11-15] MEDS ORDERED: ACET-2247 PO (17:10)
[2022-11-15] MEDS ORDERED: BISA-151 PO (17:11)
[2022-11-15] MEDS ORDERED: HYDR-4723 PO (17:13)
[2022-11-15] MEDS ORDERED: MAGN-169 PO (17:13)
== END 2022-11-15 18:40 | DRG 720 ==
LOC: EMS 08:56 → ICU 12:56 → 6S 11-08 19:08 → 6N 11-09 19:00
PROVIDERS: ADMIT Internal Medicine; ATTEND Internal Medicine
PROC: 0JBN0ZZ Excision of Right Lower Leg Subcutaneous Tissue and Fascia, Open Approach (ICD-10-PCS; principal; 2022-11-07 11:15)
DX: A40.0 Sepsis due to streptococcus, group A (principal); N17.0 Acute kidney failure with tubular necrosis; M72.6 Necrotizing fasciitis; M62.82 Rhabdomyolysis; D69.6 Thrombocytopenia, unspecified; E43 Unspecified severe protein-calorie malnutrition; L03.115 Cellulitis of right lower limb; L03.116 Cellulitis of left lower limb; A46 Erysipelas; Z20.822 Contact with and (suspected) exposure to COVID-19; N40.0 Benign prostatic hyperplasia without lower urinary tract symptoms; Z59.00 Homelessness unspecified; Z91.199 Patient's noncompliance with other medical treatment and regimen due to unspecified reason; Z68.20 Body mass index [BMI] 20.0-20.9, adult
CPT/HCPCS: 36245; 36569; 71045; 76937; 80048; 80053; 80202; 80307; 81001; 82550; 82962; 83036; 83605; 83735; 83880; 84100; 84145; 84484; 85014; 85018; 85025; 85610; 86140; 87015; 87040; 87070; 87081; 87086; 87101; 87186; 87205; 87206; 88305; 93005; 96365; 96366; 97162; 99291; G0378; J0696; J1100; J1644; J1885; J2060; J2250; J2270; J2405; J2540; J2543; J2704; J3010; J3370; J3490; J7030; J7040; J7050; J7060; Q9967; 36415-L1; 36415-TC; Z7610

== ENCOUNTER 2022-12-18 23:50 | Inpatient (IN) | payer OTHER ==
[~2022-12-18] VITALS: Ht 172.7 cm; Wt 60.9 kg
[~2022-12-18 23:50] MED LIST changes: +ACET-2247 PO; +BISA-151 PO; +CEFX2I IV; +DIVA-85 PO; +DOCU-385 PO; +HYDR-4723 PO; +MAGN-169 PO; +MICO45CR44 TP; +MULT-1239 PO; +PANT-31 PO; +TRAZ-252 PO
[2022-12-19] MEDS ORDERED: 0.9% SODIUM CHLORIDE 10 ML SYRINGE IVP PRN (06:45)
[2022-12-19] MEDS ORDERED: SODIUM CHLORIDE 0.9% 1,700 ML IV ONE ×2 (06:45→08:00)
[2022-12-19 07:09] LABS: BASOPHILS % (AUTO) 0.2 % (0.0-2.0); EOSINOPHILS % (AUTO) 0 % (1.0-6.0); HEMATOCRIT 30.2 % (41-53); HEMOGLOBIN 9.9 g/dL (13.5-17.5); LYMPHOCYTES # (AUTO) 0.9 K/uL (1.0-4.8); LYMPHOCYTES % (AUTO) 6.5 % (22.0-44.0); MEAN CORPUSCULAR HEMOGLOBIN 28.9 pg (26.0-34.0); MEAN CORPUSCULAR HGB CONC 32.8 G/dL (31.0-37.0); MEAN CORPUSCULAR VOLUME 88 fL (80-100); MONOCYTES # (AUTO) 0.5 K/uL (0.1-1.0); MONOCYTES % (AUTO) 3.4 % (2.0-9.0); NEUTROPHILS # (AUTO) 11.9 K/uL (1.8-7.7); PLATELET COUNT (AUTO) 69 K/uL (150-450); RED BLOOD CELL COUNT(AUTO) 3.43 MIL/uL (4.50-5.90); RED CELL DISTRIBUTION WIDTH 15.5 % (11.5-14.5)
[2022-12-19 07:10] LABS: NEUTROPHILS % (AUTO) 89.9 % (40.0-70.0)
[2022-12-19 07:20] LABS: CALCIUM, TOTAL 8.5 mg/dL (8.8-10.5); CREATININE 1.52 mg/dL (0.60-1.30); POTASSIUM 3.4 mmol/L (3.5-5.1)
[2022-12-19 07:22] LABS: INR 1.1 (0.9-1.1); PROTHROMBIN TIME 11.8 SEC (9.4-11.6)
[2022-12-19 07:30] LABS: ALBUMIN 2.2 g/dL (3.4-5.0); BILIRUBIN,TOTAL 0.5 mg/dL (0.1-1.0); TOTAL PROTEIN, SERUM 7.5 g/dL (6.4-8.2)
[2022-12-19] MEDS ORDERED: PIPERACILLIN/TAZO 3.375 GM/D5W 50 ML IV ONE (08:00)
[2022-12-19] MEDS ORDERED: VANCOMYCIN HCL 1.25 GM in DEXTROSE 5%-WATER 250 ML IV ONE (08:00)
[2022-12-19] MEDS ORDERED: ACETAMINOPHEN 325 MG TABLET PO PRN (08:15)
[2022-12-19] MEDS ORDERED: ONDANSETRON HCL 4 MG/2 ML VIAL IVP PRN (08:15)
[2022-12-19] MEDS ORDERED: MAGNESIUM HYDROXIDE SUSPENSION 30 ML UDCUP PO PRN (08:15)
[2022-12-19] MEDS: FAMOTIDINE 20 MG TABLET PO SCH (09:36)
[2022-12-19] MEDS: MULTIVITAMINS WITH MINERALS, THERAPEUTIC TABLET PO SCH (09:36)
[2022-12-19 09:53] LABS: COVID AG,FIA SOURCE NASAL SWAB
[2022-12-19 12:19] LABS: INFLUENZA TYPE A NEGATIVE FOR TYPE A (NEGATIVE); INFLUENZA TYPE B NEGATIVE FOR TYPE B (NEGATIVE)
[2022-12-19] MEDS: CefTRIAXone 1 GM/DEXTROSE 50 ML IV SCH (12:52)
[2022-12-19 13:40] LABS: APPEARANCE,URINE HAZY (CLEAR); BILIRUBIN,URINE NEGATIVE (NEGATIVE); GLUCOSE, URINE (UA) NEGATIVE (NEGATIVE); KETONES,URINE NEGATIVE (NEGATIVE); LEUKOCYTE ESTERASE ,URINE LARGE (NEGATIVE); NITRATE,URINE POSITIVE (NEGATIVE); OCCULT BLOOD,URINE MODERATE (NEGATIVE); PROTEIN,URINE TRACE mg/dL (NEGATIVE); SPECIFIC GRAVITIY, URINE 1.007 (1.003-1.030); UROBILINOGEN,URINE <=1.0 mg/dL (<=1.0)
[2022-12-19 13:59] LABS: BACTERIA,URINE Many /HPF (None Seen); WBC,URINE 26-50 /HPF (0-5)
[2022-12-19] MEDS: HEPARIN SODIUM,PORCINE 5,000 UNITS/ML VIAL SQ SCH ×2 (15:06→22:16)
[2022-12-19] MEDS: OxyCODONE HCL/ACETAMINOPHEN 5-325 MG TABLET PO PRN ×2 (15:33→22:17)
[2022-12-19] MEDS ORDERED: SODIUM CHLORIDE 0.9% 500 ML IV ONE (19:28)
[2022-12-19 21:55] VITALS: BP 118/65
[2022-12-20 03:12] VITALS: BP 97/63
[2022-12-20 08:55] VITALS: BP 103/58
[2022-12-20] MEDS: MULTIVITAMINS WITH MINERALS, THERAPEUTIC TABLET PO SCH (09:11)
[2022-12-20] MEDS: FAMOTIDINE 20 MG TABLET PO SCH (09:12)
[2022-12-20] MEDS: HEPARIN SODIUM,PORCINE 5,000 UNITS/ML VIAL SQ SCH ×2 (09:12→17:46)
[2022-12-20] MEDS ORDERED: SODIUM CHLORIDE 0.9% 500 ML IV ONE (09:13)
[2022-12-20] MEDS: VANCOMYCIN 1GM/WATER(PEG/NADA) 200 ML IV SCH (09:15)
[2022-12-20] MEDS: CefTRIAXone 1 GM/DEXTROSE 50 ML IV SCH (14:36)
[2022-12-20] MEDS: OxyCODONE HCL/ACETAMINOPHEN 5-325 MG TABLET PO PRN (15:08)
[2022-12-20 16:07] VITALS: BP 92/58
[2022-12-20 18:56] LABS: GLUCOMETER DEV NAME(LOC) 6N.1; GLUCOSE,POINT OF CARE 109 MG/DL (70-110)
[2022-12-20 20:42] VITALS: BP 105/69
[2022-12-21] MEDS: HEPARIN SODIUM,PORCINE 5,000 UNITS/ML VIAL SQ SCH ×4 (00:27→23:04)
[2022-12-21 05:42] VITALS: BP 102/53
[2022-12-21 07:46] VITALS: BP 124/68
[2022-12-21 08:10] LABS: CREATININE 1.35 mg/dL (0.60-1.30); POTASSIUM 4.5 mmol/L (3.5-5.1)
[2022-12-21] MEDS: MULTIVITAMINS WITH MINERALS, THERAPEUTIC TABLET PO SCH (08:23)
[2022-12-21] MEDS: FAMOTIDINE 20 MG TABLET PO SCH (08:23)
[2022-12-21] MEDS: OxyCODONE HCL/ACETAMINOPHEN 5-325 MG TABLET PO PRN ×3 (08:31→17:04)
[2022-12-21] MEDS: VANCOMYCIN 1GM/WATER(PEG/NADA) 200 ML IV SCH (08:43)
[2022-12-21] MEDS: CefTRIAXone 1 GM/DEXTROSE 50 ML IV SCH (12:59)
[2022-12-21 15:24] VITALS: BP 122/70
[2022-12-21 20:45] VITALS: BP 112/68
[2022-12-22 05:36] VITALS: BP 107/64
[2022-12-22 07:27] LABS: CALCIUM, TOTAL 8.7 mg/dL (8.8-10.5); CREATININE 1.35 mg/dL (0.60-1.30); POTASSIUM 4.2 mmol/L (3.5-5.1); VANCOMYCIN,RANDOM 12.3 mcg/mL (25.0-50.0)
[2022-12-22] MEDS ORDERED: VANCOMYCIN HCL 1.25 GM in DEXTROSE 5%-WATER 250 ML IV SCH (08:00)
[2022-12-22] MEDS: FAMOTIDINE 20 MG TABLET PO SCH (08:16)
[2022-12-22] MEDS: MULTIVITAMINS WITH MINERALS, THERAPEUTIC TABLET PO SCH (08:16)
[2022-12-22] MEDS: HEPARIN SODIUM,PORCINE 5,000 UNITS/ML VIAL SQ SCH ×2 (08:17→15:13)
[2022-12-22 10:44] VITALS: BP 119/64
[2022-12-22] MEDS: CefTRIAXone 1 GM/DEXTROSE 50 ML IV SCH (12:51)
[2022-12-22] MEDS ORDERED: CLIN300C58 PO (13:10)
[2022-12-22] MEDS ORDERED: BACTDSB PO (13:10)
[2022-12-22 17:29] VITALS: BP 122/82
== END 2022-12-22 15:55 | disposition home or self-care (01) | DRG 383 ==
LOC: EMS 23:51 → AHU 12-19 07:15 → 6S 12-19 18:02
PROVIDERS: ADMIT Internal Medicine; ATTEND Internal Medicine
DX: L03.116 Cellulitis of left lower limb (principal); E43 Unspecified severe protein-calorie malnutrition; D69.6 Thrombocytopenia, unspecified; G82.20 Paraplegia, unspecified; R65.10 Systemic inflammatory response syndrome (SIRS) of non-infectious origin without acute organ dysfunction; E87.6 Hypokalemia; N28.9 Disorder of kidney and ureter, unspecified; Z20.822 Contact with and (suspected) exposure to COVID-19; G89.29 Other chronic pain; L03.115 Cellulitis of right lower limb; Z79.899 Other long term (current) drug therapy; Z99.3 Dependence on wheelchair; Z68.20 Body mass index [BMI] 20.0-20.9, adult; F99 Mental disorder, not otherwise specified
CPT/HCPCS: 36245; 36569; 71045; 76937; 80048; 80053; 80164; 80202; 81001; 82962; 83605; 84145; 85025; 85610; 87040; 87081; 87086; 87186; 87804; 93005; 93925; 93970; 97162; 97530; 99285; J0696; J1644; J2543; J3370; J7030; J7040; J7060; Q9967; 36415-L1; 36415-TC

== ENCOUNTER 2024-07-03 12:02 | Inpatient (IN) | payer MEDICAID, OTHER ==
[~2024-07-03] VITALS: Ht 154.9 cm; Wt 53.6 kg
[~2024-07-03 12:02] MED LIST changes: -ACET-2247 PO; -AMOX1TAB15 PO; -BISA-151 PO; -CEFX2I IV; -DOCU-385 PO; +HYDR-4062 PO; -HYDR-4723 PO; -MAGN-169 PO; -MICO45CR44 TP; -TAMS-13 PO; +TAMS0.4C94 PO
[2024-07-03 12:32] LABS: COVID AG,FIA SOURCE NASAL SWAB
[2024-07-03 12:56] LABS: ANION GAP 11 mmol/L (8-16); BASOPHILS % (AUTO) 0.8 % (0.0-2.0); CALCIUM, TOTAL 8.9 mg/dL (8.8-10.5); CARBON DIOXIDE 26 mmol/L (22-29); CHLORIDE 104 mmol/L (98-107); CREATININE 1.49 mg/dL (0.60-1.30); EOSINOPHILS % (AUTO) 0.4 % (1.0-6.0); GLOMERULAR FILTR. RATE CALC 48 mL/min (>60); GLUCOSE,RANDOM 111 mg/dL (70-110); HEMATOCRIT 45.1 % (41-53); HEMOGLOBIN 14.9 g/dL (13.5-17.5); LYMPHOCYTES # (AUTO) 0.9 K/uL (1.0-4.8); LYMPHOCYTES % (AUTO) 17.4 % (22.0-44.0); MEAN CORPUSCULAR VOLUME 91 fL (80-100); MONOCYTES # (AUTO) 0.3 K/uL (0.1-1.0); MONOCYTES % (AUTO) 7.1 % (2.0-9.0); NEUTROPHILS # (AUTO) 3.7 K/uL (1.8-7.7); NEUTROPHILS % (AUTO) 74.3 % (40.0-70.0); PLATELET COUNT (AUTO) 55 K/uL (150-450); POTASSIUM 3.5 mmol/L (3.5-5.1); RED BLOOD CELL COUNT(AUTO) 4.97 MIL/uL (4.50-5.90); RED CELL DISTRIBUTION WIDTH 14.6 % (11.5-14.5); SODIUM SERUM 141 mmol/L (136-145); UREA NITROGEN, BLOOD 13 mg/dL (7-18); WHITE BLOOD COUNT (AUTO) 4.9 K/uL (4.5-11.0)
[2024-07-03 13:02] LABS: ALCOHOL, BLOOD (SERUM) < 3 mg/dL (0-10)
[2024-07-03 13:03] LABS: SARS-COV2 (COVID) ANTIGEN,FIA Negative (Negative)
[2024-07-03 13:08] LABS: RBC MORPHOLOGY COMMENT NORMAL RBC MORPH
[2024-07-03 14:01] LABS: ALCOHOL, URINE DRUG SCREEN NEGATIVE (NEGATIVE); AMPHET/METH SCREEN,URINE POSITIVE (NEGATIVE); BARBITURATE SCREEN, URINE NEGATIVE (NEGATIVE); BENZODIAZEPINES SCREEN,URINE NEGATIVE (NEGATIVE); CANNABINOID SCREEN,URINE POSITIVE (NEGATIVE); COCAINE SCREEN,URINE NEGATIVE (NEGATIVE); METHADONE SCREEN, URINE NEGATIVE (NEGATIVE); OPIATE SCREEN,URINE NEGATIVE (NEGATIVE); PHENCYCLIDINE SCREEN,URINE NEGATIVE (NEGATIVE)
[2024-07-03 14:02] LABS: PH,URINE DRUG SCREEN 6.5 (5.0-8.0)
[2024-07-04] MEDS: DIVALPROEX SODIUM 500 MG ER TABLET PO ONE (23:33)
[2024-07-04] MEDS: TraZODone HCL 50 MG TABLET PO ONE (23:33)
[2024-07-04] MEDS: GABAPENTIN 300 MG CAPSULE PO ONE (23:34)
[2024-07-05] MEDS: GABAPENTIN 300 MG CAPSULE PO ONE (08:32)
[2024-07-06 02:39] VITALS: RESP 18
[2024-07-06 08:41] VITALS: BP 125/73; PULSE 59; RESP 18; TEMP 98.4; O2SAT 96
[2024-07-06] MEDS ORDERED: ZOLPIDEM TARTRATE 10 MG TABLET PO PRN (10:45)
[2024-07-06] MEDS ORDERED: LORazepam 2 MG TABLET PO PRN (10:45)
[2024-07-06] MEDS ORDERED: HALOPERIDOL 5 MG TABLET PO PRN (10:45)
[2024-07-06] MEDS: DIVALPROEX SODIUM 250 MG ER TABLET PO SCH (13:00)
[2024-07-06] MEDS: TraZODone HCL 50 MG TABLET PO SCH (13:00)
[2024-07-06 14:54] VITALS: RESP 18
[2024-07-06 20:01] VITALS: BP 125/71; PULSE 60; RESP 18; TEMP 98.2; O2SAT 95
[2024-07-07 08:39] VITALS: BP 135/63; PULSE 58; RESP 16; TEMP 98.2; O2SAT 98
[2024-07-07 20:45] VITALS: BP 132/76; PULSE 63; RESP 18; TEMP 97.2; O2SAT 98
[2024-07-08 08:53] VITALS: BP 124/72; PULSE 60; RESP 18; TEMP 97.8; O2SAT 99
[2024-07-08] MEDS: ESCITALOPRAM OXALATE 10 MG TABLET PO SCH (10:15)
[2024-07-08 20:34] VITALS: RESP 18
[2024-07-09 09:02] LABS: CALCIUM, TOTAL 9.1 mg/dL (8.8-10.5); CREATININE 1.31 mg/dL (0.60-1.30); POTASSIUM 3.9 mmol/L (3.5-5.1)
[2024-07-09 10:46] VITALS: BP 118/72; PULSE 60; RESP 18; TEMP 97.8; O2SAT 100
[2024-07-09 20:32] VITALS: BP 114/70; PULSE 70; RESP 18; TEMP 97.5; O2SAT 98
[2024-07-10 13:31] VITALS: BP 111/66; PULSE 56; RESP 17; O2SAT 99
[2024-07-10 20:04] VITALS: BP 105/73; PULSE 64; RESP 18; O2SAT 97
[2024-07-11 08:59] VITALS: BP 111/63; PULSE 59; RESP 18; TEMP 97.2; O2SAT 100
[2024-07-11 21:25] VITALS: BP 98/61; PULSE 60; RESP 18; TEMP 97.4
[2024-07-12 09:14] VITALS: BP 98/61; PULSE 53; RESP 20; TEMP 99.4; O2SAT 98
[2024-07-12 21:00] VITALS: BP 96/59; PULSE 57; RESP 18; TEMP 97.6; O2SAT 99
[2024-07-13 08:36] VITALS: BP 111/61; PULSE 53; RESP 18; TEMP 97.5; O2SAT 96
[2024-07-13] MEDS ORDERED: TRAZ-252 PO (11:42)
[2024-07-13] MEDS ORDERED: DIVA-85 PO (11:42)
[2024-07-13] MEDS ORDERED: ESCI-8 PO (11:42)
== END 2024-07-13 16:10 | disposition home or self-care (01) | DRG 753 ==
LOC: EMS 12:03 → 3EC 07-05 20:30 → 3EI 07-09 21:41
PROVIDERS: ADMIT Psychiatry & Neurology Psychiatry; ATTEND Psychiatry & Neurology Psychiatry
PROC: GZHZZZZ Group Psychotherapy (ICD-10-PCS; principal; 2024-07-06)
PROC: GZ52ZZZ Individual Psychotherapy, Cognitive (ICD-10-PCS; 2024-07-06)
DX: F31.64 Bipolar disorder, current episode mixed, severe, with psychotic features (principal); G82.20 Paraplegia, unspecified; N17.9 Acute kidney failure, unspecified; R45.851 Suicidal ideations; K74.60 Unspecified cirrhosis of liver; Z20.822 Contact with and (suspected) exposure to COVID-19; F12.10 Cannabis abuse, uncomplicated; F15.10 Other stimulant abuse, uncomplicated; K21.9 Gastro-esophageal reflux disease without esophagitis; N40.0 Benign prostatic hyperplasia without lower urinary tract symptoms; F41.9 Anxiety disorder, unspecified; Z79.899 Other long term (current) drug therapy
CPT/HCPCS: 80048; 80307; 85025; 99285; G0480

== ENCOUNTER 2024-09-17 15:51 | Inpatient (IN) | payer MEDICAID, OTHER ==
[~2024-09-17] VITALS: Ht 172.7 cm; Wt 54.5 kg
[~2024-09-17 15:51] MED LIST changes: -ACET-3385 PO; -BACTDSB PO; -CHOL500013 PO; -CLIN300C58 PO; +ESCI-8 PO; -GABA-1181 PO; -HYDR-4062 PO; -IBUP-1506 PO; -MULT-1239 PO; -PANT-31 PO; -TAMS0.4C94 PO
[2024-09-17] MEDS ORDERED: 0.9% SODIUM CHLORIDE 10 ML SYRINGE IVP PRN (18:30)
[2024-09-17 18:38] LABS: BASOPHILS % (AUTO) 0.7 % (0.0-2.0); EOSINOPHILS % (AUTO) 0 % (1.0-6.0); HEMATOCRIT 41.2 % (41-53); LYMPHOCYTES # (AUTO) 0.5 K/uL (1.0-4.8); LYMPHOCYTES % (AUTO) 2.9 % (22.0-44.0); MEAN CORPUSCULAR HEMOGLOBIN 30.9 pg (26.0-34.0); MEAN CORPUSCULAR VOLUME 91 fL (80-100); MONOCYTES # (AUTO) 1.1 K/uL (0.1-1.0); MONOCYTES % (AUTO) 6.6 % (2.0-9.0); NEUTROPHILS # (AUTO) 14.4 K/uL (1.8-7.7); PLATELET COUNT (AUTO) 84 K/uL (150-450); RED BLOOD CELL COUNT(AUTO) 4.54 MIL/uL (4.50-5.90); RED CELL DISTRIBUTION WIDTH 14.5 % (11.5-14.5)
[2024-09-17] MEDS: MORPHINE SULFATE 4 MG/ML SYRINGE IVP ONE (18:40)
[2024-09-17] MEDS: ONDANSETRON HCL 4 MG/2 ML VIAL IVP ONE (18:40)
[2024-09-17] MEDS: SODIUM CHLORIDE 0.9% 1,650 ML IV ONE (18:40)
[2024-09-17 18:41] LABS: NEUTROPHILS % (AUTO) 89.8 % (40.0-70.0)
[2024-09-17] MEDS: PERTUSS(ACELL),DIPH,TET/PF 0.5 ML SYRINGE [ADULT] IM. ONE (18:41)
[2024-09-17 18:46] LABS: ANION GAP 10 mmol/L (8-16); CALCIUM, TOTAL 8.7 mg/dL (8.8-10.5); CARBON DIOXIDE 25 mmol/L (22-29); CHLORIDE 98 mmol/L (98-107); CREATININE 1.24 mg/dL (0.60-1.30); GLOMERULAR FILTR. RATE CALC 59 mL/min (>60); GLUCOSE,RANDOM 111 mg/dL (70-110); POTASSIUM 3.6 mmol/L (3.5-5.1); PROTHROMBIN TIME 10.6 SEC (9.4-11.6); SODIUM SERUM 133 mmol/L (136-145); UREA NITROGEN, BLOOD 21 mg/dL (7-18)
[2024-09-17] MEDS: BACITRACIN 0.9 GM PACKET OINTMENT TP ONE (18:47)
[2024-09-17 18:50] LABS: ALANINE AMINOTRANSFERASE 46 U/L (12-78); ALBUMIN 2.7 g/dL (3.4-5.0); ALKALINE PHOSPHATASE 103 U/L (46-116); ASPARTATE AMINOTRANSFERASE 63 U/L (15-37); BILIRUBIN,TOTAL 1.3 mg/dL (0.1-1.0); TOTAL PROTEIN, SERUM 6.6 g/dL (6.4-8.2)
[2024-09-17 18:52] LABS: LACTIC ACID 1.7 mmol/L (0.4-2.0); TROPONIN I-HIGH SENSITIVITY 12 ng/L (<76)
[2024-09-17] MEDS ORDERED: MORPHINE SULFATE 2 MG/ML SYRINGE IVP PRN (19:00)
[2024-09-17 19:09] LABS: B-TYPE NATRIURETIC PEPTIDE 72 pg/mL (0-100)
[2024-09-17] MEDS: VANCOMYCIN 1GM/WATER(PEG/NADA) 200 ML IV ONE (19:20)
[2024-09-17 21:30] VITALS: BP 145/92; PULSE 89; RESP 18; TEMP 100.4; O2SAT 98
[2024-09-17] MEDS ORDERED: SODIUM CHLORIDE 0.9% 500 ML IV ONE (22:44)
[2024-09-17] MEDS: ACETAMINOPHEN 325 MG TABLET PO PRN (22:59)
[2024-09-18] MEDS: CefTRIAXone 1 GM/DEXTROSE 50 ML IV SCH (00:07)
[2024-09-18 00:24] LABS: APPEARANCE,URINE HAZY (CLEAR); BILIRUBIN,URINE NEGATIVE (NEGATIVE); COLOR,URINE YELLOW (YELLOW); GLUCOSE, URINE (UA) NEGATIVE (NEGATIVE); LEUKOCYTE ESTERASE ,URINE SMALL (NEGATIVE); NITRATE,URINE NEGATIVE (NEGATIVE); OCCULT BLOOD,URINE TRACE (NEGATIVE); PROTEIN,URINE 30-70 mg/dL (NEGATIVE); SPECIFIC GRAVITIY, URINE 1.025 (1.003-1.030)
[2024-09-18 00:28] LABS: AMORPHOUS SEDIMENT,UR Many /LPF (None Seen); BACTERIA,URINE Few /HPF (None Seen); SQUAMOUS EPITHELIAL CELL,UR Few /LPF (None Seen)
[2024-09-18] MEDS: HEPARIN SODIUM,PORCINE 5,000 UNITS/ML VIAL SQ SCH (01:25)
[2024-09-18] MEDS ORDERED: IOHEXOL 350 MG/ML 100 ML VIAL ONE (02:04)
[2024-09-18] MEDS ORDERED: SODIUM CHLORIDE 0.9% 100 ML ONE (02:04)
[2024-09-18 04:22] VITALS: BP 103/67; PULSE 82; RESP 18; TEMP 98.9; O2SAT 95
[2024-09-18 06:19] LABS: BASOPHILS % (AUTO) 0.2 % (0.0-2.0); EOSINOPHILS % (AUTO) 0 % (1.0-6.0); HEMATOCRIT 41.8 % (41-53); HEMOGLOBIN 14.1 g/dL (13.5-17.5); LYMPHOCYTES # (AUTO) 0.4 K/uL (1.0-4.8); MEAN CORPUSCULAR HEMOGLOBIN 30.9 pg (26.0-34.0); MEAN CORPUSCULAR HGB CONC 33.7 G/dL (31.0-37.0); MEAN CORPUSCULAR VOLUME 92 fL (80-100); MONOCYTES # (AUTO) 0.8 K/uL (0.1-1.0); MONOCYTES % (AUTO) 5.8 % (2.0-9.0); NEUTROPHILS # (AUTO) 13.2 K/uL (1.8-7.7); PLATELET COUNT (AUTO) 71 K/uL (150-450); RED BLOOD CELL COUNT(AUTO) 4.57 MIL/uL (4.50-5.90); RED CELL DISTRIBUTION WIDTH 14.7 % (11.5-14.5); WHITE BLOOD COUNT (AUTO) 14.6 K/uL (4.5-11.0)
[2024-09-18 06:26] LABS: CALCIUM, TOTAL 8.1 mg/dL (8.8-10.5); CREATININE 1.25 mg/dL (0.60-1.30); MAGNESIUM 1.6 mg/dL (1.80-2.40); POTASSIUM 3.8 mmol/L (3.5-5.1)
[2024-09-18 07:58] VITALS: BP 104/52; PULSE 73; RESP 19; TEMP 99.9; O2SAT 99
[2024-09-18] MEDS ORDERED: VANCOMYCIN 1GM/WATER(PEG/NADA) 200 ML IV SCH (08:00)
[2024-09-18] MEDS: VANCOMYCIN 1.25 GM/WATER(PEG) 250 ML IV SCH (08:37)
[2024-09-18 16:08] VITALS: BP 122/68; PULSE 88; RESP 19; TEMP 99.2; O2SAT 99
[2024-09-18 22:49] VITALS: BP 107/55; PULSE 58; RESP 20; TEMP 97.9; O2SAT 96
[2024-09-19] MEDS: PIPERACILLIN/TAZO 3.375 GM/D5W 50 ML IV SCH (12:00)
[2024-09-19] MEDS: DIVALPROEX SODIUM 250 MG ER TABLET PO SCH (13:00)
[2024-09-19] MEDS: TraZODone HCL 50 MG TABLET PO SCH (13:00)
[2024-09-20] MEDS ORDERED: ESCITALOPRAM OXALATE 10 MG TABLET PO SCH (09:00)
== END 2024-09-19 17:30 | disposition left against medical advice (07) | DRG 710 ==
LOC: EMS 15:51 → EDH 19:04 → 4E 21:25
PROVIDERS: ADMIT Internal Medicine; ATTEND Internal Medicine
PROC: 0JBK3ZZ Excision of Left Hand Subcutaneous Tissue and Fascia, Percutaneous Approach (ICD-10-PCS; principal; 2024-09-17)
DX: A41.89 Other specified sepsis (principal); E43 Unspecified severe protein-calorie malnutrition; G82.20 Paraplegia, unspecified; J18.0 Bronchopneumonia, unspecified organism; E87.1 Hypo-osmolality and hyponatremia; L03.116 Cellulitis of left lower limb; T23.222A Burn of second degree of single left finger (nail) except thumb, initial encounter; S70.312A Abrasion, left thigh, initial encounter; J44.9 Chronic obstructive pulmonary disease, unspecified; Z87.891 Personal history of nicotine dependence; Z53.29 Procedure and treatment not carried out because of patient's decision for other reasons; X58.XXXA Exposure to other specified factors, initial encounter; Y93.89 Activity, other specified; Y92.89 Other specified places as the place of occurrence of the external cause; Y99.8 Other external cause status; Z99.3 Dependence on wheelchair; Z68.1 Body mass index [BMI] 19.9 or less, adult
CPT/HCPCS: 71045; 73701; 80048; 80053; 81001; 83605; 83735; 83880; 84145; 84484; 85025; 85610; 87040; 87077; 87205; 90715; 93005; 99285; G0378; J0696; J1644; J2270; J2405; J2543; J7030; J7040; J7050; 36415-L1; 36415-TC

== ENCOUNTER 2025-09-23 21:49 | Inpatient (IN) | payer OTHER ==
[~2025-09-23] VITALS: Ht 170.2 cm; Wt 72.7 kg
[~2025-09-23 21:49] MED LIST changes: +ASPI-1450 PO; +CARV3 PO; -DIVA-85 PO; -ESCI-8 PO; -TRAZ-252 PO; +TRAZ-257 PO
[2025-09-23 23:25] LABS: PLATELET COUNT (AUTO) 138 K/uL (150-450); RED BLOOD CELL COUNT(AUTO) 4.03 MIL/uL (4.50-5.90); RED CELL DISTRIBUTION WIDTH 16.6 % (11.5-14.5); WHITE BLOOD COUNT (AUTO) 6.3 K/uL (4.5-11.0)
[2025-09-23 23:31] LABS: CALCIUM, TOTAL 9.3 mg/dL (8.8-10.5); CREATININE 1.00 mg/dL (0.60-1.30); GLOMERULAR FILTR. RATE CALC > 60 mL/min (>60); GLUCOSE,RANDOM 103 mg/dL (70-110); SODIUM SERUM 141 mmol/L (136-145); UREA NITROGEN, BLOOD 22 mg/dL (7-18)
[2025-09-23 23:37] LABS: ASPARTATE AMINOTRANSFERASE 80.0 U/L (15-37); TOTAL PROTEIN, SERUM 7.4 g/dL (6.4-8.2)
[2025-09-23 23:42] LABS: LACTIC ACID 1.0 mmol/L (0.4-2.0)
[2025-09-23] MEDS ORDERED: ONDANSETRON HCL 4 MG/2 ML VIAL IVP PRN (23:45)
[2025-09-23] MEDS ORDERED: BISACODYL 10 MG RECTAL RECTAL SUPPOSITORY PR PRN (23:45)
[2025-09-23] MEDS ORDERED: MAGNESIUM HYDROXIDE SUSPENSION 30 ML UDCUP PO PRN (23:45)
[2025-09-24] MEDS: HEPARIN SODIUM,PORCINE 5,000 UNITS/ML VIAL SQ SCH (00:18)
[2025-09-24] MEDS: MORPHINE SULFATE 4 MG/ML SYRINGE IVP PRN (00:24)
[2025-09-24 03:27] VITALS: BP 127/90; PULSE 72; RESP 18; TEMP 97.9; O2SAT 95
[2025-09-24 08:29] VITALS: BP 120/80; PULSE 69; RESP 18; TEMP 97.7; O2SAT 98
[2025-09-24] MEDS: ASPIRIN 81 MG CHEWABLE TABLET PO SCH (08:43)
[2025-09-24] MEDS: PANTOPRAZOLE SODIUM 40 MG DR TABLET PO SCH (08:43)
[2025-09-24 16:38] VITALS: BP 126/80; PULSE 61; RESP 18; TEMP 97.7; O2SAT 100
[2025-09-24 20:00] VITALS: BP 139/83; PULSE 68; RESP 18; TEMP 98.1; O2SAT 100
[2025-09-24] MEDS: IPRATROPIUM BROMIDE 0.5 MG/2.5 ML NEB SOLUTION NEB PRN (20:10)
[2025-09-24] MEDS: ALBUTEROL SULFATE 2.5 MG/0.5 ML NEB SOLUTION NEB PRN (20:10)
[2025-09-24 20:15] VITALS: PULSE 90; RESP 24; O2SAT 98
[2025-09-24 20:17] VITALS: PULSE 90; RESP 24; O2SAT 98
[2025-09-24] MEDS: FUROSEMIDE 40 MG/4 ML VIAL IVP ONE (23:39)
[2025-09-24] MEDS: SPIRONOLACTONE 25 MG TABLET PO ONE (23:40)
[2025-09-24] MEDS ORDERED: SODIUM CHLORIDE 0.9% 500 ML IV ONE (23:45)
[2025-09-25] MEDS: VANCOMYCIN 1.25 GM/WATER(PEG) 250 ML IV ONE (01:11)
[2025-09-25 04:00] VITALS: BP 116/73; PULSE 65; RESP 18; TEMP 98.1; O2SAT 95
[2025-09-25 04:07] LABS: HEPATITIS C AB (EIA) Reactive (Non Reactive)
[2025-09-25 07:49] VITALS: BP 126/73; PULSE 63; RESP 18; TEMP 97.7; O2SAT 100
[2025-09-25 09:23] LABS: CALCIUM, TOTAL 9.4 mg/dL (8.8-10.5); CREATININE 1.19 mg/dL (0.60-1.30); GLOMERULAR FILTR. RATE CALC > 60 mL/min (>60); GLUCOSE,RANDOM 107 mg/dL (70-110); SODIUM SERUM 141 mmol/L (136-145); UREA NITROGEN, BLOOD 25 mg/dL (7-18)
[2025-09-25] MEDS: FUROSEMIDE 20 MG/2 ML VIAL IVP SCH (09:28)
[2025-09-25] MEDS: VANCOMYCIN 1GM/WATER(PEG/NADA) 200 ML IV SCH (09:29)
[2025-09-25] MEDS: SPIRONOLACTONE 25 MG TABLET PO SCH (09:29)
[2025-09-25] MEDS: HYDROCODONE/ACETAMINOPHEN 5-325 MG TABLET PO PRN (10:57)
[2025-09-25 16:00] VITALS: BP 110/74; PULSE 65; RESP 16; TEMP 98.6; O2SAT 100
[2025-09-25 20:02] VITALS: BP 112/78; PULSE 69; RESP 18; TEMP 97.7; O2SAT 100
[2025-09-26 04:25] VITALS: BP 111/70; PULSE 69; RESP 18; TEMP 97.9; O2SAT 99
[2025-09-26 08:00] VITALS: BP 107/71; PULSE 66; RESP 16; TEMP 99.5; O2SAT 100
[2025-09-26 08:25] LABS: CALCIUM, TOTAL 9.0 mg/dL (8.8-10.5); CREATININE 1.23 mg/dL (0.60-1.30); GLOMERULAR FILTR. RATE CALC 59.0 mL/min (>60); GLUCOSE,RANDOM 96.0 mg/dL (70-110); SODIUM SERUM 141.0 mmol/L (136-145); UREA NITROGEN, BLOOD 29.0 mg/dL (7-18)
[2025-09-26] MEDS: MORPHINE SULFATE 4 MG/ML SYRINGE IVP PRN (12:00)
[2025-09-26 16:20] VITALS: BP 113/77; PULSE 71; RESP 18; TEMP 99.1; O2SAT 98
[2025-09-26 20:12] VITALS: BP 112/72; PULSE 66; RESP 18; TEMP 98.4; O2SAT 99
[2025-09-26] MEDS: ZOLPIDEM TARTRATE 5 MG TABLET PO PRN (23:23)
[2025-09-27 04:15] VITALS: BP 109/80; PULSE 67; RESP 18; TEMP 98.2; O2SAT 99
[2025-09-27 07:25] LABS: CALCIUM, TOTAL 8.9 mg/dL (8.8-10.5); CREATININE 1.18 mg/dL (0.60-1.30); GLOMERULAR FILTR. RATE CALC > 60 mL/min (>60); GLUCOSE,RANDOM 85 mg/dL (70-110); SODIUM SERUM 139 mmol/L (136-145); UREA NITROGEN, BLOOD 29 mg/dL (7-18)
[2025-09-27] MEDS ORDERED: ALBUMIN HUMAN 25%-12.5GM/50ML 50 ML IV ONE (08:45)
[2025-09-27 09:14] LABS: SPECIMENTYPE,BODY FLUID ASCV
[2025-09-27] MEDS: VANCOMYCIN 1GM/WATER(PEG/NADA) 200 ML IV SCH (09:37)
[2025-09-27 09:50] VITALS: BP 97/70; PULSE 63; RESP 18; O2SAT 97
[2025-09-27] MEDS: ALBUMIN HUMAN 25%-12.5GM/50ML 50 ML IV ONE (09:57)
[2025-09-27 10:53] LABS: APPEARANCE,SPUN,BODY FLUID HAZY (CLEAR); APPEARANCE,UNSPUN,BODY FLUID HAZY (CLEAR); BASOPHILS,BODY FLUID 0 % (1-5); BODY FLUID RBC 13.0 /cu. mm.; COLOR,BODY FLUID COLORLESS (LT YELLOW); EOSINOPHILS,BF (ANAL) 0 %; LYMPHOCYTES,BODY FLUID 77 %; MONOCYTES,BODY FLUID 3 %; NEUTROPHILS,BODY FLUID 20 %; PH, BODY FLUID 8.0 (6.8-7.6); TOTAL VOLUME,BODY FLUID 1050 mL; WBC, BODY FLUID 125 /cu. mm.
[2025-09-27] MEDS: MELATONIN 5 MG TABLET PO SCH (21:00)
[2025-09-28 08:13] VITALS: BP 114/75; PULSE 60; RESP 20; TEMP 98.1; O2SAT 99
[2025-09-28 09:29] LABS: CALCIUM, TOTAL 9.0 mg/dL (8.8-10.5); CREATININE 1.09 mg/dL (0.60-1.30); GLOMERULAR FILTR. RATE CALC > 60 mL/min (>60); GLUCOSE,RANDOM 150 mg/dL (70-110); SODIUM SERUM 138 mmol/L (136-145); UREA NITROGEN, BLOOD 28 mg/dL (7-18)
[2025-09-28] MEDS: ESCITALOPRAM OXALATE 10 MG TABLET PO SCH (09:44)
[2025-09-28 14:07] LABS: GLUCOSE, BODY FLUID,REF 105.0 mg/dL; LDH,BODY FLUID,REF 36.0 IU/L; TOTAL PROTEIN,BODY FLUID,REF 0.8 g/dL; URIC ACID, BODY FLUID,REF 6.2 mg/dL
[2025-09-28 16:25] VITALS: BP 96/68; PULSE 55; RESP 18; TEMP 98.1; O2SAT 99
[2025-09-28 20:12] VITALS: BP 109/65; PULSE 58; RESP 17; TEMP 97.9; O2SAT 100
[2025-09-29 04:58] VITALS: BP 107/68; PULSE 55; RESP 17; TEMP 97.7; O2SAT 100
[2025-09-29 07:53] LABS: CALCIUM, TOTAL 9.1 mg/dL (8.8-10.5); CREATININE 1.06 mg/dL (0.60-1.30); GLOMERULAR FILTR. RATE CALC > 60 mL/min (>60); GLUCOSE,RANDOM 93 mg/dL (70-110); SODIUM SERUM 140 mmol/L (136-145); UREA NITROGEN, BLOOD 32 mg/dL (7-18)
[2025-09-29 08:39] VITALS: BP 100/64; PULSE 55; RESP 18; TEMP 97.7; O2SAT 95
[2025-09-29 12:07] LABS: HEPATITIS C RT-PCR,QNT 982000 IU/mL
[2025-09-29 16:00] VITALS: BP 112/71; PULSE 60; RESP 17; TEMP 98.1; O2SAT 96
[2025-09-29 19:52] VITALS: BP 114/70; PULSE 57; RESP 18; TEMP 98.1; O2SAT 97
[2025-09-30 04:39] VITALS: BP 108/72; PULSE 56; RESP 18; TEMP 97.7; O2SAT 98
[2025-09-30 08:15] LABS: CALCIUM, TOTAL 9.3 mg/dL (8.8-10.5); CREATININE 1.05 mg/dL (0.60-1.30); GLOMERULAR FILTR. RATE CALC > 60 mL/min (>60); GLUCOSE,RANDOM 113 mg/dL (70-110); SODIUM SERUM 139 mmol/L (136-145); UREA NITROGEN, BLOOD 31 mg/dL (7-18)
[2025-09-30 08:30] VITALS: BP 114/60; PULSE 57; RESP 18; TEMP 97.7; O2SAT 100
[2025-09-30 16:23] VITALS: BP 107/70; PULSE 58; RESP 18; TEMP 98.2; O2SAT 96
[2025-09-30 20:00] VITALS: BP 106/71; PULSE 58; RESP 18; TEMP 98.2; O2SAT 97
[2025-10-01 04:00] VITALS: BP_SYST 105; BP_SYST 96; BP_DIAS 60; BP_DIAS 70; PULSE 56; RESP 18; TEMP 98; O2SAT 98
[2025-10-01 08:05] LABS: CALCIUM, TOTAL 9.5 mg/dL (8.8-10.5); CREATININE 1.05 mg/dL (0.60-1.30); GLOMERULAR FILTR. RATE CALC > 60 mL/min (>60); GLUCOSE,RANDOM 92 mg/dL (70-110); SODIUM SERUM 141 mmol/L (136-145); UREA NITROGEN, BLOOD 36 mg/dL (7-18)
[2025-10-01 08:18] VITALS: BP 105/72; PULSE 61; RESP 18; TEMP 97.8; O2SAT 100
[2025-10-01 10:48] LABS: PLATELET COUNT (AUTO) 82 K/uL (150-450); RED BLOOD CELL COUNT(AUTO) 4.17 MIL/uL (4.50-5.90); RED CELL DISTRIBUTION WIDTH 16.1 % (11.5-14.5); WHITE BLOOD COUNT (AUTO) 4.3 K/uL (4.5-11.0)
[2025-10-01 16:00] VITALS: BP 117/71; PULSE 55; RESP 18; TEMP 97.8; O2SAT 100
[2025-10-01 19:20] VITALS: BP 116/72; PULSE 63; RESP 18; TEMP 98.1; O2SAT 96
[2025-10-02 04:29] VITALS: BP 104/61; PULSE 56; RESP 18; TEMP 97.7; O2SAT 98
[2025-10-02 08:00] VITALS: BP 106/73; PULSE 58; RESP 19; TEMP 97.7; O2SAT 100
[2025-10-02 08:10] LABS: CALCIUM, TOTAL 9.9 mg/dL (8.8-10.5); CREATININE 0.92 mg/dL (0.60-1.30); GLOMERULAR FILTR. RATE CALC > 60 mL/min (>60); GLUCOSE,RANDOM 88 mg/dL (70-110); SODIUM SERUM 140 mmol/L (136-145); UREA NITROGEN, BLOOD 35 mg/dL (7-18)
[2025-10-02 16:00] VITALS: BP 115/73; PULSE 57; RESP 20; TEMP 98.1; O2SAT 99
[2025-10-03 05:18] VITALS: BP 106/65; PULSE 51; RESP 18; TEMP 98.2; O2SAT 100
[2025-10-03 07:46] LABS: CALCIUM, TOTAL 9.3 mg/dL (8.8-10.5); CREATININE 0.95 mg/dL (0.60-1.30); GLOMERULAR FILTR. RATE CALC > 60 mL/min (>60); GLUCOSE,RANDOM 86 mg/dL (70-110); SODIUM SERUM 142 mmol/L (136-145); UREA NITROGEN, BLOOD 35 mg/dL (7-18)
[2025-10-03] MEDS: ACETAMINOPHEN 325 MG TABLET PO PRN (08:26)
[2025-10-03] MEDS ORDERED: SODIUM CHLORIDE 0.9% 500 ML IV ONE (08:30)
[2025-10-03 16:00] VITALS: BP 110/73; PULSE 53; RESP 20; TEMP 98.2; O2SAT 98
[2025-10-03 20:16] VITALS: BP 114/66; PULSE 60; RESP 20; TEMP 98.4; O2SAT 100
[2025-10-04 04:00] VITALS: BP 104/74; PULSE 59; RESP 20; TEMP 98.2; O2SAT 99
[2025-10-04 08:04] VITALS: BP 105/70; PULSE 54; RESP 18; TEMP 98.1; O2SAT 99
[2025-10-04 09:10] LABS: CALCIUM, TOTAL 9.5 mg/dL (8.8-10.5); CREATININE 0.98 mg/dL (0.60-1.30); GLOMERULAR FILTR. RATE CALC > 60 mL/min (>60); GLUCOSE,RANDOM 79 mg/dL (70-110); SODIUM SERUM 139 mmol/L (136-145); UREA NITROGEN, BLOOD 33 mg/dL (7-18)
[2025-10-04 16:20] VITALS: BP 98/58; PULSE 56; RESP 18; TEMP 98.4; O2SAT 98
[2025-10-05] MEDS: ESCITALOPRAM OXALATE 20 MG TABLET PO SCH (08:14)
[2025-10-05 17:11] VITALS: BP 106/79; PULSE 78; RESP 18; TEMP 98; O2SAT 97
[2025-10-05 19:57] VITALS: BP 109/68; PULSE 61; RESP 18; TEMP 98.7; O2SAT 93
[2025-10-06 08:33] VITALS: BP 126/79; PULSE 60; RESP 17; TEMP 97.7; O2SAT 96
[2025-10-06 08:35] LABS: CALCIUM, TOTAL 10.1 mg/dL (8.8-10.5); CREATININE 1.12 mg/dL (0.60-1.30); GLOMERULAR FILTR. RATE CALC > 60 mL/min (>60); GLUCOSE,RANDOM 99 mg/dL (70-110); SODIUM SERUM 143 mmol/L (136-145); UREA NITROGEN, BLOOD 32 mg/dL (7-18)
[2025-10-06 15:57] VITALS: BP 117/78; PULSE 63; RESP 18; TEMP 97.7; O2SAT 95
[2025-10-06 20:18] VITALS: BP 111/70; PULSE 60; RESP 19; TEMP 98.4; O2SAT 95
[2025-10-06] MEDS: MORPHINE SULFATE 4 MG/ML SYRINGE IVP PRN (21:00)
[2025-10-06] MEDS ORDERED: GABAPENTIN 300 MG CAPSULE PO PRN (23:00)
[2025-10-07 05:22] VITALS: BP 109/68; PULSE 68; RESP 17; TEMP 98.2; O2SAT 96
[2025-10-07 07:15] LABS: CALCIUM, TOTAL 9.3 mg/dL (8.8-10.5); CREATININE 1.24 mg/dL (0.60-1.30); GLOMERULAR FILTR. RATE CALC 59.0 mL/min (>60); GLUCOSE,RANDOM 85.0 mg/dL (70-110); SODIUM SERUM 139.0 mmol/L (136-145); UREA NITROGEN, BLOOD 37.0 mg/dL (7-18)
[2025-10-07 08:53] VITALS: BP 96/64; PULSE 57; RESP 18; TEMP 98.1; O2SAT 100
[2025-10-07] MEDS: PREGABALIN 50 MG CAPSULE PO SCH (09:31)
[2025-10-07] MEDS: ESCITALOPRAM OXALATE 10 MG TABLET PO SCH (09:32)
[2025-10-07] MEDS: DULoxetine HCL 20 MG CAPSULE PO SCH (09:32)
[2025-10-07 16:27] VITALS: BP 91/59; PULSE 82; RESP 18; TEMP 97.7; O2SAT 100
[2025-10-07 19:46] VITALS: BP 103/72; PULSE 75; RESP 19; TEMP 97.9; O2SAT 95
[2025-10-08 04:11] VITALS: BP 105/74; PULSE 62; RESP 18; TEMP 97.7; O2SAT 98
[2025-10-08 08:27] VITALS: BP 100/65; PULSE 55; RESP 18; TEMP 97.8; O2SAT 98
[2025-10-08] MEDS ORDERED: PANT-31 PO (12:00)
[2025-10-08] MEDS ORDERED: ESCI-8 PO (12:00)
[2025-10-08] MEDS ORDERED: SPIR-37 PO (12:00)
[2025-10-08] MEDS ORDERED: GABA-1181 PO (12:00)
[2025-10-08] MEDS ORDERED: TRAZ-257 PO (12:00)
[2025-10-08] MEDS ORDERED: DULO20CA23 PO (12:00)
[2025-10-08] MEDS ORDERED: PREG50 PO (12:00)
[2025-10-08] MEDS ORDERED: QUET200T30 PO (12:00)
[2025-10-08] MEDS ORDERED: FURO20TA5 PO (12:02)
[2025-10-08 13:32] LABS: CALCIUM, TOTAL 8.8 mg/dL (8.8-10.5); CREATININE 1.10 mg/dL (0.60-1.30); GLOMERULAR FILTR. RATE CALC > 60 mL/min (>60); GLUCOSE,RANDOM 96 mg/dL (70-110); SODIUM SERUM 143 mmol/L (136-145); UREA NITROGEN, BLOOD 36 mg/dL (7-18)
== END 2025-10-08 13:22 | disposition hospice, home (50) ==
LOC: EMS 21:58 → EDH 23:40 → 4E 09-24 03:10
PROVIDERS: ADMIT Hospitalist; ATTEND Hospitalist
PROC: 0W9G30Z Drainage of Peritoneal Cavity with Drainage Device, Percutaneous Approach (ICD-10-PCS; principal; 2025-09-27)
PROC: 0W9G30Z Drainage of Peritoneal Cavity with Drainage Device, Percutaneous Approach (ICD-10-PCS; 2025-10-04)
DX: K74.60 Unspecified cirrhosis of liver (principal); E43 Unspecified severe protein-calorie malnutrition; L89.159 Pressure ulcer of sacral region, unspecified stage; R64 Cachexia; R78.81 Bacteremia; Z66 Do not resuscitate; R18.8 Other ascites; L03.115 Cellulitis of right lower limb; D63.8 Anemia in other chronic diseases classified elsewhere; F25.9 Schizoaffective disorder, unspecified; F19.10 Other psychoactive substance abuse, uncomplicated; B19.20 Unspecified viral hepatitis C without hepatic coma; G89.29 Other chronic pain; Z86.73 Personal history of transient ischemic attack (TIA), and cerebral infarction without residual deficits; Z79.899 Other long term (current) drug therapy; Z68.25 Body mass index [BMI] 25.0-25.9, adult; Z91.199 Patient's noncompliance with other medical treatment and regimen due to unspecified reason
CPT/HCPCS: 49083; 71045; 71250; 72192; 74150; 76942; 80048; 80076; 80202; 82042; 82140; 82570; 82945; 83605; 83615; 83986; 84157; 84478; 84560; 85025; 85610; 85730; 86803; 87040; 87075; 87077; 87081; 87186; 87205; 87340; 87522; 88108; 88305; 89051; 93005; 94640; 99285; G0378; J1644; J1938; J2270; J7040; P9047; 36415-L1; 36415-TC; 87070; J7613